=== PATIENT | male | born 1965 | race Caucasian/White ===

== ENCOUNTER 2019-03-31 10:00 | Emergency (ER) | payer BC, OTHER ==
[~2019-03-31] VITALS: Ht 180.3 cm; Wt 68.6 kg
[2019-03-31] MEDS ORDERED: LEVE500T53 PO (10:17)
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
[2019-03-31] MEDS ORDERED: LEVETIRACETAM 500 MG TABLET PO ONE (10:30)
[2019-03-31] MEDS ORDERED: LEVETIRACETAM 500 MG TABLET ONE (10:57)
[2019-03-31 11:04] VITALS: BP 110/69
== END 2019-03-31 11:21 | disposition home or self-care (01) ==
LOC: ED 11:10
DX: R56.9 Unspecified convulsions (principal)
CPT/HCPCS: 99283